=== PATIENT | female | born 1975 | race Caucasian/White ===

== ENCOUNTER 2017-11-20 13:35 | Emergency (ER) | payer SELFPAY ==
[~2017-11-20] VITALS: Ht 154.9 cm; Wt 70.0 kg
[2017-11-20] MEDS ORDERED: IBUPROFEN 600MG TABLET PO STA (14:02)
[2017-11-20 14:33] LABS: BASOPHILS % 0.4 % (0.0-2.0); EOSINOPHILS % 0.2 % (0.0-5.0); HEMATOCRIT. 34.2 % (36.0-48.0); HEMOGLOBIN. 10.8 g/dL (12.0-16.0); LYMPHOCYTES % 12.5 % (20.0-50.0); MEAN CORPUSCULAR HEMOGLOBIN 23.4 pg (28.0-32.0); MONOCYTES % 3.8 % (2.0-8.0); NEUTROPHILS % 83.1 % (40.0-76.0); PLATELET 322 x1000/uL (130-400); RED BLOOD CELL COUNT 4.63 mill/uL (4.2-5.4); RED CELL DISTRIBUTION WIDTH 15.6 % (11.6-14.6)
[2017-11-20 14:40] LABS: D-DIMER 0.24 mg/L FEU (<0.50); PROTHROMBIN TIME 10.7 sec (9.4-11.6)
[2017-11-20 14:43] LABS: CHLORIDE 102 mEq/L (98-107)
[2017-11-20 17:37] VITALS: BP 123/74
== END 2017-11-20 17:42 | disposition home or self-care (01) ==
LOC: ER 13:57
DX: R07.9 Chest pain, unspecified (principal); E11.9 Type 2 diabetes mellitus without complications; I10 Essential (primary) hypertension
CPT/HCPCS: 36415; 71045; 80053; 85025; 85379; 85610; 93005; 99285; Z7610

== ENCOUNTER 2019-12-18 03:49 | Emergency (ER) | payer SELFPAY ==
[~2019-12-18] VITALS: Ht 154.9 cm; Wt 69.0 kg
[2019-12-18] MEDS ORDERED: ACETAMINOPHEN WITH CODEINE 300/30MG TABLET PO ONE (04:45)
[2019-12-18 05:00] VITALS: BP 114/73
== END 2019-12-18 06:39 | disposition home or self-care (01) ==
LOC: ER 03:49
DX: N76.4 Abscess of vulva (principal); E11.9 Type 2 diabetes mellitus without complications; I10 Essential (primary) hypertension
CPT/HCPCS: 81025; 99283